=== PATIENT | male | born 1985 | race Caucasian/White ===

== ENCOUNTER 2020-07-22 09:31 | Outpatient (CLI) | payer BC | END 2020-07-22 09:32 | disposition home or self-care (01) | LOC: CSHWCC 09:31 | PROVIDERS: ATTEND Nurse Practitioner Family | DX: L89.310 Pressure ulcer of right buttock, unstageable (principal); Z74.01 Bed confinement status | CPT/HCPCS: 99213; G0463 ==

== ENCOUNTER 2020-07-29 15:13 | Outpatient (CLI) | payer BC | END 2020-07-29 15:14 | disposition home or self-care (01) | LOC: CSHWCC 15:13 | PROVIDERS: ATTEND Nurse Practitioner Family | DX: L89.310 Pressure ulcer of right buttock, unstageable (principal); Z74.01 Bed confinement status | CPT/HCPCS: 99213; G0463 ==

== ENCOUNTER 2020-08-05 13:28 | Outpatient (CLI) | payer BC | END 2020-08-05 13:29 | disposition home or self-care (01) | LOC: CSHWCC 13:28 | PROVIDERS: ATTEND Nurse Practitioner Family | DX: L89.310 Pressure ulcer of right buttock, unstageable (principal); Z74.01 Bed confinement status | CPT/HCPCS: 99213; G0463 ==

== ENCOUNTER 2020-08-19 11:52 | Outpatient (CLI) | payer BC | END 2020-08-19 11:53 | disposition home or self-care (01) | LOC: CSHWCC 11:52 | PROVIDERS: ATTEND Nurse Practitioner Family | DX: L89.310 Pressure ulcer of right buttock, unstageable (principal); L89.319 Pressure ulcer of right buttock, unspecified stage; Z74.01 Bed confinement status | CPT/HCPCS: 99213; G0463 ==

== ENCOUNTER 2020-09-16 10:39 | Outpatient (CLI) | payer BC | END 2020-09-16 10:40 | disposition home or self-care (01) | LOC: CSHWCC 10:39 | PROVIDERS: ATTEND Nurse Practitioner Family | DX: L89.310 Pressure ulcer of right buttock, unstageable (principal); Z74.01 Bed confinement status | CPT/HCPCS: 99213; G0463 ==